=== PATIENT | female | born 2000 | race Caucasian/White ===

== ENCOUNTER 2019-12-18 22:09 | Emergency (ER) | payer BC ==
[~2019-12-18] VITALS: Ht 165.1 cm; Wt 82.0 kg
[2019-12-18] MEDS ORDERED: KETOROLAC 60MG/2ML VIAL IM STA (22:40)
[2019-12-18] MEDS ORDERED: ONDANSETRON 4MG ODT PO ONE (22:45)
[2019-12-18 23:15] LABS: BASOPHILS % 0.7 % (0.0-2.0); EOSINOPHILS % 0.1 % (0.0-5.0); HEMATOCRIT. 40.2 % (36.0-48.0); HEMOGLOBIN. 13.6 g/dL (12.0-16.0); LYMPHOCYTES % 16.9 % (20.0-50.0); MEAN CORPUSCULAR VOLUME 82.5 fL (81.0-99.0); MEAN PLATELET VOLUME 8.4 fl (7.4-10.4); MONOCYTES % 7.5 % (2.0-8.0); NEUTROPHILS % 74.8 % (40.0-76.0); PLATELET 308 x1000/uL (130-400); RED BLOOD CELL COUNT 4.87 mill/uL (4.2-5.4)
[2019-12-18 23:24] LABS: CHLORIDE 103 mEq/L (98-107)
[2019-12-18 23:38] LABS: CLARITY URINE CLOUDY (CLEAR); COLOR URINE YELLOW (YELLOW); KETONES URINE 1+ (NEGATIVE); LEUKOCYTE ESTERASE URINE NEGATIVE (NEGATIVE); NITRITE URINE NEGATIVE (NEGATIVE); OCCULT BLOOD URINE 3+ (NEGATIVE); PH URINE 5.5 (4.5-8.0); PROTEIN URINE 1+ (NEGATIVE); SPECIFIC GRAVITY URINE 1.032 (1.005-1.030)
[2019-12-19 01:58] VITALS: BP 102/66
== END 2019-12-19 02:00 | disposition home or self-care (01) ==
LOC: ER 22:09
DX: N20.0 Calculus of kidney (principal)
CPT/HCPCS: 36415; 74176; 80053; 81003; 81025; 83690; 85025; 93005; 96372; 99285; J1885; Q0162